=== PATIENT | female | born 1965 | race African-American/Black ===

== ENCOUNTER 2024-09-26 09:32 | Outpatient (AMB) | payer BC, SELFPAY ==
[2024-09-26 10:17] VITALS: BP 124/64; PULSE 111; O2SAT 97; BMI 19.1
--- NOTE | 2024-09-26 10:17 | A.OFFVIS_ITS ---
Vital Signs 09/26/24 10:17 Height 5 ft 3 in Weight 107 lb 9.116 oz BMI 19.1 BP 124/64 Blood Pressure Location Lt brachial Position Sitting Pulse 111 H Pulse Source Pulse Oximeter Pulse Oximetry (%) 97 Oxygen Delivery Method Room Air Intake Visit Reasons: Auto Immune Intake Note: Patient presents for follow up on autoimmune. Patient has difficulties of daily living, everything is more of an effort, which started in April. Stiffness in hands since May. Allergies acetaminophen [From Tylenol] Allergy (Mild, Verified 09/26/24 10:21) urticaria, skin rashes erythromycin base Allergy (Mild, Verified 09/26/24 10:21) Stomach Upset Penicillins Allergy (Mild, Verified 09/26/24 10:21) Hives HPI Comments Details: In Jul 2023 she took fosamax first time then had a hard time swallowing requiring heimlich maneuver at work. She had PTSD and did not eat well for 8 months. Lost 20lbs. She had bilateral knee R>L in April. She had x-rays revealing joint fluid per patient. PCP have her 6 day treatment of prednisone, which relieved hand pain. SHe saw ortho [facility] who drained right knee and dx her with chondromalacia with recommendations to do PT. She recieved right knee cortisone injection with benefit. She felt worse after PT then before starting. She continues to do PT excercise. Hand pain started in May. MS 1-3 hours. PIPs are swollen and stiffness. Unable to close hands. She has intermittent shoulder pain. Denies hip and lower back pain. Denies GCA symptoms. [facility] Medical History (Updated 09/26/24 @ 12:51 by Parrish Castelan MD) Abscess of right breast Bilateral hand pain Surgical History (Updated 09/26/24 @ 10:32 by Angela Chaudhary CMA) History of carpal tunnel surgery of left wrist H/O dilation and curettage Family History (Updated 09/26/24 @ 10:36 by Angela Chaudhary CMA) Father Gouty arthritis Mother History of thyroid surgery Diabetes Hypertension Brother Scleroderma Gout Social History (Updated 09/26/24 @ 10:37 by Angela Chaudhary CMA) Household Members: Family Alcohol intake: current Alcohol intake frequency: holidays/special occasions only Alcohol type: hard liquor Comment: mixed drink Patient Tobacco Use Status: Never used Tobacco Review of Systems Const All systems reviewed & are unremarkable except as noted in HPI and below Physical Exam Vital Signs: Last Vital Signs Pulse 111 H 09/26/24 10:17 BP 124/64 09/26/24 10:17 Pulse Ox 97 09/26/24 10:17 Oxygen Delivery Method Room Air 09/26/24 10:17 BMI result Body Mass Index 19.1 Const Other: General: Comfortable CVS: RRR Respiratory: clear to auscultation bilaterally. Good respiratory effort Skin: No lesions seen MSK: Chronic synovial thickening bilateral 1st to 3rd MCPs, tender right PIPs with synovitis present 3rd PIP, tender left 2nd to 5th PIPs, synovitis of bilateral wrists present. Shoulder abduction 170 degrees bilateral with good internal external rotation. Synovitis of bilateral knees with tenderness present. Tender bilateral knees on palpation. Synovitis of bilateral ankles and left MTPs present. No tenderness of MTPs. Assessment & Plan Assessment & Plan (1) Chronic inflammatory arthritis: Comment: Exam is consistent with inflammatory arthritis. She has a prior history of PMR. PMR remains in remission. She is very anxious with new diagnosis. I discussed in detail management plan with patient but she is very overwhelmed. I will obtain labs and baseline x-rays this visit and have her return for follow-up with a close visit in month. She agreed to use prednisone short term. Code(s): M19.90 - Unspecified osteoarthritis, unspecified site Category: Medical Plan: Prednisone course prescribed Labs ordered X-rays bilateral hands and feet ordered Requesting x-ray reports of bilateral knees ordered by PCP and nails Return to clinic in a month (2) Polymyalgia rheumatica: Comment: In remission Code(s): M35.3 - Polymyalgia rheumatica Category: Medical Plan: Monitor clinically (3) Osteoporosis: Comment: Based on bone density 08/14/2023. She did not tolerate Fosamax and a choking episode requiring heimlich maneuver with subsequent PTSD. We will address treatment at a future visit. Reclast as indicated Code(s): M81.0 - Age-related osteoporosis without current pathological fracture Category: Medical Plan: We will readdress at a future visit Orders: Orders Cyclic Citrullinated Peptide Today M19.90 - Unspecified osteoarthritis, unspecified site Rheumatoid Factor Today M19.90 - Unspecified osteoarthritis, unspecified site C Reactive Protein Today M1 - Unspecified osteoarthritis, unspecified site XR foot LT 2V Today M1 - Unspecified osteoarthritis, unspecified site Hepatitis B,C Profile Today M1 - Unspecified osteoarthritis, unspecified site T Spot TB Today M1 - Unspecified osteoarthritis, unspecified site Erythrocyte Sedimentation Rate Today M1 - Unspecified osteoarthritis, unspecified site Alanine Aminotransferase Today Z79.60 - intermodal owner operator truck driver (current) use of unspecified immunomodulators and immunosuppressants Aspartate Amino Transferase Today Z79.60 - intermodal owner operator truck driver (current) use of unspecified immunomodulators and immunosuppressants Complete Blood Count Auto Diff Today Z79.60 - longterm (current) use of unspecified immunomodulators and immunosuppressants Creatinine Today Z79.60 - longterm (current) use of unspecified immunomodulators and immunosuppressants XR hand LT min 3V Today M1 - Unspecified osteoarthritis, unspecified site XR hand RT min 3V Today M1 - Unspecified osteoarthritis, unspecified site XR foot RT 2V Today M1 - Unspecified osteoarthritis, unspecified site Medications: New prednisone Take 4 tablets daily for 5 days, 3 tablets daily for 5 days, 2 tablets daily for 5 days, 1 tablet daily for 5 days, then stop. Take prednisone with food. 5 mg PO DIRECTED 50 tabs 0RF Coding Level of Care Code Est Pt Level 4 (71927) Complex EM visit Add On G2211 Diagnoses Chronic inflammatory arthritis M1 Polymyalgia rheumatica M35.3 Osteoporosis M81.0
== END 2024-09-26 11:19 | disposition home or self-care (01) ==
PROVIDERS: PCP Nurse Practitioner Family; Visit Provider Internal Medicine Rheumatology
DX: M19.90 Unspecified osteoarthritis, unspecified site (principal); M35.3 Polymyalgia rheumatica; M81.0 Age-related osteoporosis without current pathological fracture
CPT/HCPCS: 99214

== ENCOUNTER 2024-09-27 13:59 | Outpatient (REF) | payer BC, SELFPAY ==
--- NOTE | ~2024-09-27 | XR_ITS ---
EXAMINATION: XR HAND 3 OR MORE VIEWS LEFT HISTORY: M19.90 - Unspecified osteoarthritis, unspecified site COMPARISON: There are no prior studies available for comparison. FINDINGS: Three views of the left hand are submitted. There are erosions involving the scaphoid and likely the distal radius and lunate. There is no fracture or dislocation. There is moderate osteoarthritis of the 1st carpometacarpal joint with joint space narrowing. The remaining joint spaces are preserved. The soft tissues are unremarkable. XR/XR hand LT min 3V IMPRESSION: Moderate osteoarthritis of the 1st carpometacarpal joint. Erosions involving the carpus and distal radius. Electronically signed by: Angel Dover MD 10/02/2024 10:42 AM [facility]
--- NOTE | ~2024-09-27 | XR_ITS ---
EXAMINATION: XR FOOT 3 OR MORE VIEWS LEFT HISTORY: M19.90 - Unspecified osteoarthritis, unspecified site COMPARISON: There are no prior studies available for comparison. FINDINGS: Three views of the left foot are submitted. Osseous mineralization is normal. There is no fracture or dislocation. The joint spaces are preserved. The soft tissues are unremarkable. XR/XR foot LT min 3V IMPRESSION: Unremarkable examination of the left foot. Electronically signed by: Angel Dover MD 10/02/2024 10:44 AM [facility]
--- NOTE | ~2024-09-27 | XR_ITS ---
EXAMINATION: XR FOOT 3 OR MORE VIEWS RIGHT HISTORY: M19.90 - Unspecified osteoarthritis, unspecified site COMPARISON: There are no prior studies available for comparison. FINDINGS: Three views of the right foot are submitted. Osseous mineralization is normal. There is no fracture or dislocation. The joint spaces are preserved. The soft tissues are unremarkable. XR/XR foot RT min 3V IMPRESSION: Unremarkable examination of the right foot. Electronically signed by: Angel Dover MD 10/02/2024 10:45 AM [facility]
--- NOTE | ~2024-09-27 | XR_ITS ---
EXAMINATION: XR HAND 3 OR MORE VIEWS RIGHT HISTORY: M19.90 - Unspecified osteoarthritis, unspecified site COMPARISON: There are no prior studies available for comparison. FINDINGS: Three views of the right hand are submitted. Osseous mineralization is normal. There is no fracture or dislocation. The joint spaces are preserved. The soft tissues are unremarkable. XR/XR hand RT min 3V IMPRESSION: No joint space narrowing is identified. Electronically signed by: Angel Dover MD 10/02/2024 10:44 AM [facility]
[2024-09-27 16:13] LABS: MANUAL DIFF FLAG NO
[2024-09-27 16:23] LABS: Basophils Absolute Auto 0.1 X10*3/uL (0.0-0.2); Basophils Percent Auto 0.7 % (0-2); Eosinophils Absolute Auto 0.1 X10*3/uL (0.0-0.4); Eosinophils Percent Auto 1.1 % (0-4); Hematocrit 31.1 % (37.0-47.0); Hemoglobin 9.5 g/dl (12.0-16.0); Imm Gran Abs Auto 0.03 X10*3/uL (0.00-0.03); Imm Gran Pct Auto 0.4 % (0.0-0.4); Lymphocytes Absolute Auto 2.7 X10*3/uL (1.2-4.9); Mean Corpuscular HGB Conc 30.5 g/dl (31.0-35.0); Mean Corpuscular Hemoglobin 23.7 pg (27.0-33.0); Mean Corpuscular Volume 77.6 fL (80.0-98.0); Mean Platelet Volume 10.7 fL (9.4-12.3); Monocytes Absolute Auto 0.9 X10*3/uL (0.1-1.2); Monocytes Percent Auto 10.6 % (2-11); Neutrophils Absolute Auto 4.5 x10*3/uL (2.0-8.3); Neutrophils Percent Auto 54.2 % (45-73); Platelet Count 654 X10*3/uL (160-400); Red Blood Count 4.01 X10*6/uL (4.20-5.50); Red Cell Distribution Width 16.6 % (11.0-16.0); White Blood Count 8.2 X10*3/uL (4.8-10.8)
[2024-09-27 16:32] LABS: Rheumatoid Factor 15.4 IU/mL (<15.0)
[2024-09-27 16:35] LABS: Alanine Aminotransferase < 6 U/L (0-31); Aspartate Amino Transferase 20 U/L (5-31); C Reactive Protein 16.63 mg/dL (< or = 0.50); Estimated Glomerular Filt Rate > 60
[2024-09-27 17:16] LABS: Erythrocyte Sedimentation Rate 86 MM/HR (0-20)
[2024-09-28 04:04] LABS: HBS Num1 277.41 mIU/mL (0-7.99); HBc Num1 0.44 S/CO (0.00-0.79); HBsAGNum1 0.36 S/CO (0.00-0.99); Hepatitis B Core Antibody Nonreactive (Nonreactive); Hepatitis B Surface Antigen Negative (Negative); ~HepC Num1 0.19 S/CO (0.00-0.79); ~Hepatitis B Surface Antibody REACTIVE (Nonreactive); ~Hepatitis C Antibody Nonreactive (Nonreactive)
[2024-10-03 19:53] LABS: Cyclic Citrullinated Peptide <16 UNITS
== END 2024-09-27 14:00 | disposition home or self-care (01) ==
LOC: HO.HMGCX 13:59
PROVIDERS: PCP Nurse Practitioner Family; Visit Provider Internal Medicine Rheumatology
DX: M19.90 Unspecified osteoarthritis, unspecified site (principal); Z79.60 Long term (current) use of unspecified immunomodulators and immunosuppressants
CPT/HCPCS: 36415; 73130; 73630; 82565; 84450; 84460; 85025; 85652; 86140; 86200; 86431; 86704; 86706; 86803; 87340

== ENCOUNTER → 2024-09-27 14:08 | Outpatient (BNV) | payer BC, SELFPAY | PROVIDERS: PCP Nurse Practitioner Family; Visit Provider Radiology Diagnostic Radiology | DX: M18.9 Osteoarthritis of first carpometacarpal joint, unspecified (principal); M19.90 Unspecified osteoarthritis, unspecified site | CPT/HCPCS: 73130; 73630 ==

== ENCOUNTER 2024-11-05 10:07 | Outpatient (AMB) | payer BC, SELFPAY ==
[2024-11-05 10:09] VITALS: BP 122/74; PULSE 134; O2SAT 100; BMI 19.7
--- NOTE | 2024-11-05 10:09 | MHC.OFFVIS ---
Vital Signs 11/05/24 10:09 Height 5 ft 3 in Weight 111 lb 8 oz BMI 19.7 BP 122/74 Blood Pressure Location Lt brachial Position Sitting Pulse 134 H Pulse Source Pulse Oximeter Pulse Oximetry (%) 100 Oxygen Delivery Method Room Air Intake Visit Reasons: Follow Up 1mo Intake Note: Patient presents for follow up Allergies acetaminophen [From Tylenol] Allergy (Mild, Verified 11/05/24 10:12) urticaria, skin rashes erythromycin base Allergy (Mild, Verified 11/05/24 10:12) Stomach Upset Penicillins Allergy (Mild, Verified 11/05/24 10:12) Hives HPI HPI Follow Up 1mo: Details: Pain has reduced. Morning stiffness none. [facility] Medical History Abscess of right breast Bilateral hand pain Surgical History History of carpal tunnel surgery of left wrist H/O dilation and curettage Family History Father Gouty arthritis Mother History of thyroid surgery Diabetes Hypertension Brother Scleroderma Gout Social History Household Members: Family Alcohol intake: current Alcohol intake frequency: holidays/special occasions only Alcohol type: hard liquor Comment: mixed drink Patient Tobacco Use Status: Never used Tobacco Physical Exam Vital Signs: Last Vital Signs Pulse 134 H 11/05/24 10:09 BP 122/74 11/05/24 10:09 Pulse Ox 100 11/05/24 10:09 Oxygen Delivery Method Room Air 11/05/24 10:09 BMI result Body Mass Index 19.7 Const Other: General: Comfortable CVS: RRR Respiratory: clear to auscultation bilaterally. Good respiratory effort Skin: No lesions seen MSK: She has synovitis bilateral wrists, chronic synovial thickening left 2nd and 3rd MCP, synovitis of left 3rd PIP, right 4th and 3rd PIP, bilateral knees, bilateral ankles and MTP. She is unable to make full fist with her hands. Good range of motion of upper extremities. Good range of motion of lower Assessment & Plan Assessment & Plan (1) Rheumatoid arthritis: Comment: Seropositive with positive rheumatoid factor. She has had relief in reducing her pain and stiffness with a course of prednisone. She continues to have synovitis affecting multiple joints. We discussed next steps in treatment. Patient is very apprehensive and afraid. She has anxiety with new diagnosis. I discussed the importance of treatment to continue to control her synovitis with goal of remission. I also discussed the importance of maintenance treatment to prevent progression of disease and irreversible joint damage leading to disability. Patient understands. We discussed side effects, drug monitoring and benefits on methotrexate. Code(s): M06.9 - Rheumatoid arthritis, unspecified Category: Medical Plan: Information given to patient on methotrexate and rheumatoid arthritis I have asked her to contact my office if her pain returns and worsens or if her joint swelling progresses Return to clinic in 1 month (2) [facility] [place] [facility] drug therapy: Code(s): Z79.899 - Other [place] [facility] [place] (current[facility] drug therapy Category: Medical Plan: See above Coding Level of Care Code Est Pt Level 4 (84519) Complex EM visit Add On G2211 Diagnoses Rheumatoid arthritis M06.9 Other [place] [facility]current[facility] drug therapy Z79.899
--- OUTSIDE RECORDS SUMMARY | 2024-11-05 11:14 | XMS_ITS | Clinical Summary ---
Author Organization [facility] Address [address] [place] [address] Care Team Providers Care Hydrogeologist Name Role Phone Cyn Taylor DO Primary Care Provider Allergies Active Allergy Reactions Criticality Noted Date Comments Acetaminophen Other 06/22/2000 Erythromycin Diarrhea/GI Upset 08/24/2007 Penicillin G Potassium Urticarial Rash Medium 03/16/20 07 hives Omeprazole Diarrhea/GI Upset 07/11/2007 Medications MULTIVITAMINS OR TABS 1 TABLET DAILY Active Tretinoin 0.025 % Cream None Entered Active Triamcinolone Acetonide, [id number], (TRIAMCINOLONE ACETONIDE, TOP,) 0.1 % Cream None Entered Active Active Problems Problem Noted Date Diagnosed Date Cervical cancer screening 12/21/2017 Overview (12/22/2017): Negative/normal pap smear hx. 12/18/17: ASCUS pap/Neg HPV. Plan: Repeat pap smear in 3 years. Allergic rhinitis 12/01/2003 Overview (06/27/2016): 12/01/2003 Harish KLEIN MD , Immunizations Name Administration Dates Next Due COVID-19, mRNA (Pfizer Pre F all 2022) Monovalent, 30 mcg/0.3 ml 05/04/2021,04/12/2021 Hep B (adult) 01/31/2008,12/28/2007 Influenza,seasonal,trivalent ,preservative (FLUZONE MDV) 08/25/2023,08/08/2022,08/06/2021 PPD/TST (Tuberculin Skin Test) 12/25/2007 Td (adult), adsorbed 11/24/2003 Family History Medical History Relation Name Comments Cancer (?Type) Brother 1 prostate Other Brother 2 scleroderma- d 2006 Diabetes Father Heart Disorder Father Other Father kidney failure Relation Name Status Comments Brother 1 Brother 2 Father Social History Tobacco Use Types Packs/Day Years Used Date Smoking Tobacco: Never Smokeless Tobacco: Never Alcohol Use Standard Drinks/Week Comments Yes 0 (1 standard drink = 0.6 oz pur e alcohol) rarely Intimate Partner Violence Answer Date R ecorded Fear of Current or Ex-Partner Not on file Emotionally Abused Not on file 05/15/2023 Physically Abused Not on file 05/15/2023 Sexually Abused Not on file 05/15/2023 Feel Safe at Home Not on file 05/15/2023 Comments No Sex and Gender Information Value Date Recorded Sex Assigned at Not on file Legal Sex Female 3:21 AM EDT Gender Identity Not on file Sexual Orientation Not on file Last Filed Vital Signs Vital Sign Reading Time Taken Comments Blood Pressure 139/82 12/18/2017 11:08 AM EDT Pulse 88 09/13/2007 11:05 AM EST Temperature 36.8 ??C (98.3 ??F) 08/24/2007 10:[address] Respiratory Rate - - Oxygen Saturation - - Inhaled Oxygen Concentration - - Weight 57.2 kg (126 lb) 12/18/2017 11:08 AM EDT Height 160 cm (5' 3 ) 12/18/2017 11:08 AM EDT Body Mass Index 22.32 12/18/2017 11:08 AM EDT Plan of Treatment Health Maintenance Due Date Last Done Comments DTaP/Tdap/Td (1 - Tdap) 11/25/2003 11/24/2003 Hep B (3 of 3 - 19+ 3-dose series) 06/28/2008 01/31/2008, 12/28/2007 Pneumococcal 50+ years (1 of 1 - PCV) 2016 Zoster (Shingrix) (1 of 2) 2016 Mammogram/Breast Imaging 02/23/2018 017, 02/06/2017, 02/01/2016, Additional history exists Pap Smear 12/18/2020 12/18/2017, 12/24, 12/07/2011, Additional history exists COVID-19 Vaccine ( season) 2024 05/04/2021, 04/12/2021 Influenza (#1) 2024 08/25/2023, 07/26, 08/06/2021 Hepatitis C Screening Completed 04/17/2001 HPV Vaccine Aged Out No longer eligi ble based on patient's age to complete this topic Hep A Aged Out No longer eligi ble based on patient's age to complete this topic Hib Aged Out No longer eligi ble based on patient's age to complete this topic Meningococcal ACWY Aged Out No longer eligible based on patient's age to complete this topic Procedures * Due to [place] [employer] [facility] law, this organization might not be sharing negative HIV tests. Procedure Name Priority Date/Time Associated Diagnosis Comments THINPREP TIS PAP AND HPV RNA, HR E6/E7, TMA Routine 12/18/2017 3:07 PM EDT Screening for malignant neoplasm of cervix MAMMOGRAM BILAT DIAG Routine 02/23/2017 2:13 PM EDT HEP C ANTIBODY (EIA-2) Routine 04/17/2001 7:04 AM EDT from Last 3 Months or Most Recently Relevant to Health Maintenance Results * Due to [place] [employer] [facility] law, this organization might not be sharing negative HIV tests. * (ABNORMAL) THINPREP TIS PAP AND HPV RNA, HR E6/E7, TMA (12/18/2017 3:07 PM EDT) Clinical information None given [facility] Date last menstrual period NONE GIVEN [facility] Date of previous PAP smear 01/08/15 NEG [facility] Date of previous biopsy NONE GIVEN [facility] Specimen source (Cvx/Vag) Cervix, Endocervix [facility] Statement of Adequacy (Cvx/Vag) Satisfactory for evaluation. Endocervical/tr ansformation zone component present. [facility] General categories (Cvx/Vag) EPITHELIAL CELL ABNORMALITY(A) [facility] Cytology, Pap Smear Atypical Squamous Cells of Undetermined Significance (ASC-US)(A) [facility] Microorganism identified (Cvx/Vag) Shift in vaginal uday suggestive of bacterial vaginosis. [employer] Cytology study comment (Cvx/Vag) This Pap test has been evaluated with computer assisted technology. [facility] Marketing Director Assisted Living (Cvx/Vag) [place], DIANN(ASCP) CT screening location: [address] [address] [facility] Pathologist (Cvx/Vag) Lori Spaulding M.D., Board Certified in Anatomic and Clinical Pathology (electronic signature) Consulting Pathologist [facility] [address] [place], [place] [id number] [employer] [facility] COMMENT SEE NOTE [facility] Comment: EXPLANATORY NOTE: The Pap is a screening test for cervical cancer. It is not a diagnostic test and is subject to false negative and false positive results. It is most reliable when a satisfactory sample, regularly obtained, is submitted with relevant clinical findings and history, and when the Pap result is evaluated along with historic and current clinical information. HPV MRNA E6/E7 Not Detected Not Detected [facility] Comment: This test was performed using the APTIMA HPV Assay ([employer] This assay detects E6/E7 viral messenger RNA (mRNA) from 14 high-risk HPV types (16,18,31,33,35,39,45,51,52,56,58,59,66,68). 12/18/2017 3:07 PM EDT 12/18/2017 10:22 PM EDT Narrative Resulting Agency Comment [id number] Jessica Keller MD PATHOLOGY-INTERFACED Final Resul t [facility] [address] [place] [address] * MAMMOGRAM BILAT DIAG (02/23/2017 2:13 PM EDT) RADIOLOGY REPORT DEPARTMENT OF RADIOLOGY ? ------ ?? Patient: INGA RAMIREZ Unit #: [id number] ?? Ordering MD: DINA OCHOA MD : 1965 ?? Procedure: Mammogram Bilat Diag Age: 51 ?? Location: W.MAMMO Exam Date: 02/23/17 ?? Status: REG CLI Room/Bed: ? Primary MD: THANH NEGRON MD Patient ? Order: MAMBILAT ?? Additional Copy: ??DINA OCHOA MD ?? THANH NEGRON MD ? #[id number] - MAMBILAT ?? #[id number] ??- USBRLIMIT ?? BILATERAL DIGITAL DIAGNOSTIC MAMMOGRAM WITH CAD AND TARGETED ?? BILATERAL ULTRASOUND: 02/23/2017 ?? CLINICAL: Bilat Breast Densities. ? Current study was also evaluated with a Computer Aided Detection ?? (CAD) system. ?? Patient returns following the recent screening study dated 06 February ?2017. There was a recommendation made for 3-D imaging however ?? the patient opted for 2-D imaging at this site. ?? Comparison is made to exams dated: ??02/06/2017 mammogram, 02/01/2016 ?mammogram, 01/08/2015 mammogram, 03/21/2012 mammogram, 03/15/2011 ?? mammogram, and 12/09/2009 mammogram - [facility] [place]. ? The tissue of both breasts is extremely dense, which may obscure ?? small masses. ?? Additional views of the left breast failed to identify any ?? developing mass or architectural distortion. ?? On the right, no multiple masses are confirmed on today's ?? views. ?? Because of the background density of both breasts targeted ?? ultrasound was performed. On the left, there is a circumscribed ?? anechoic and avascular mass at the 12:00 position 3 cm from the ?? nipple. This may represent a cyst or possibly an intramammary ?? node. It is felt to correspond with a stable circumscribed oval ?? asymmetry in the upper breast, mid depth, on the patient's ?? mammogram. No solid or suspicious masses are seen. ?? On the right, ??there is a simple cyst at the 1:00 position and 2 ?? cm from the nipple. There are no solid masses. ?? IMPRESSION: NEGATIVE, TARGETED ULTRASOUND NEGATIVE ?? There is no mammographic or targeted sonographic evidence of ?? malignancy. A 1 year screening mammogram, preferably 3-D, is ?? recommended. ??Results and recommendation were discussed directly ?? with the patient at the time of her visit. This exam was ?? interpreted at [facility]. ?? POI: [facility]. ? Electronically signed by: Velvet Khan M.D. ? issac/:02/23/2017 15:13:30 ? letter sent: A-2 Normal Benign ? Mammogram BI-RADS: 1 Negative ??Ultrasound BI-RADS: 1 Negative ? SAM[facility] ? [facility] RAD Anatomical Region Laterality Modality Other 02/23/2017 2:13 PM EDT Narrative 02/23/2017 4:38 PM EDT Reason for Study/History: Bilat Breast Densities. TEST(S) PROCESSED BY ALBERTOILENE LOWRY us Dina Ochoa MD [facility] Final R esult * HEP C ANTIBODY (EIA-2) (04/17/2001 7:04 AM EDT) HEPATITIS C AB NEGATIVE [facility] (CLIA# [id number]) 04/17/2001 7:04 AM EDT 04/20/2001 1:41 PM EDT Narrative [facility] (CLIA# [id number]) - 04/17/2001 7:04 AM EDT Send Copy(s) to: [facility] us Cris Taylor MS RN C ANP LABORATORY Final R esult [facility] (CLIA# [id number]) [address] [place] [address] from Last 3 Months or Most Recently Relevant to Health Maintenance Insurance [facility] FEE FOR SERVICE PPO Care Teams Hydrogeologist Relationship Specialty Start Date End Date Cyn Taylor DO [address] [place] [address] PCP - General Internal Medicine 8/6/15
--- OUTSIDE RECORDS SUMMARY | 2024-11-05 11:14 | XMS_ITS | Encounter Summary ---
Author Organization [facility] Address [address] [place] [address] Care Team Providers Care Assistant Store Leader Name Role Phone Cyn Taylor DO Primary Care Provider [phone] Encounter Details Date Type Department Care Team (Late st Contact Info) Description 12/18/2017 Orders Only [facility] MANA[facility] STORE [address] [place] [address] Jessica Keller MD [address] [place] [address] Social History Tobacco Use Types Packs/Day Years Used Date Smoking Tobacco: Never Smokeless Tobacco: Never Alcohol Use Standard Drinks/Week Comments Yes 0 (1 standard drink = 0.6 oz pur e alcohol) rarely Comments No Sex and Gender Information Value Date Recorded Sex Assigned at Not on file Legal Sex Female 3:21 AM EDT Gender Identity Not on file Sexual Orientation Not on file documented as of this encounter Progress Notes * Dina Lujan - 12/22/2017 11:50 AM EDT Results letter with recommendation sent to pt. On problem list. * Jessica Keller MD - 12/21/2017 5:01 PM EDT Per ASCCP guidelines, repeat PAP in 3 years * Dina Lujan - 12/21/2017 3:31 PM EDT To for pap smear f/u plan. documented in this encounter Plan of Treatment Not on file documented as of this encounter Procedures * Due to [facility] law, this organization might not be sharing negative HIV tests. Procedure Name Priority Date/Time Associated Diagnosis Comments THINPREP TIS PAP AND HPV RNA, HR E6/E7, TMA Routine 12/18/2017 3:07 PM EDT Screening for malignant neoplasm of cervix documented in this encounter Results * Due to [place] [employer] law, this organization might not be sharing [...] in vaginal uday suggestive of bacterial vaginosis. [facility] Cytology study comment (Cvx/Vag) This Pap test has been evaluated with computer assisted technology. [facility] Rocket Scientist (Cvx/Vag) HJP, CT(ASCP) CT screening location: [place] [address] [facility] Pathologist (Cvx/Vag) Lori Spaulding M.D., Board Certified in Anatomic and Clinical Pathology (electronic signature) Consulting Pathologist [facility] Pathology [address] [place] [address] [facility] COMMENT SEE NOTE [facility] Comment: EXPLANATORY NOTE: The Pap is [...] HPV MRNA E6/E7 Not Detected Not Detected [facility] Comment: This test was performed using the APTIMA HPV Assay ([employer] This assay detects E6/E7 viral messenger RNA (mRNA) from 14 high-risk HPV types (16,18,31,33,35,39,45,51,52,56,58,59,66,68). 12/18/2017 3:07 PM EDT 12/18/2017 10:22 PM EDT Narrative Resulting Agency Comment [id number] Jessica Keller MD PATHOLOGY-INTERFACED Final Resul t [facility] [address] [place] [address] documented in this encounter Visit Diagnoses Diagnosis Screening for malignant neoplasm of cervix Screening for malignant neoplasm of the cervix documented in this encounter Care Teams Assistant Store Leader Relationship Specialty Start Date End Date Cyn Taylor DO [address] [place] [address] PCP - General Internal Medicine 04/30/15 documented as of this encounter
--- OUTSIDE RECORDS SUMMARY | 2024-11-05 11:14 | XMS_ITS | Encounter Summary ---
Author Organization [facility] Address [address] [place] [address] Care Team Providers Care Tank Cleaning Supervisor Name Role Phone Trini Mehta Primary Care Provider [phone] Encounter Details Date Type Department Care Team (Latest Contact Info) Description 10/24/2024 10:40 AM EST - 10/24/2024 11:59 PM EST Hospital Encounter [facility] Ultrasound Department [address] [place] [address] Lump in armpit, left Discharge Disposition: Home or Self Care () Social History Tobacco Use Types Packs/Day Years Used Date Smoking Tobacco: Never Comments:: Comments No Sex and Gender Information Value Date Recorded Sex Assigned at Female 09/11/2024 9:52 AM EST Legal Sex Female 12:05 AM EDT Gender Identity Not on file Sexual Orientation Not on file documented as of this encounter Plan of Treatment Not on file documented as of this encounter Procedures * Due to [place] [employer] law, this organization might not be sharing negative HIV tests. Procedure Name Priority Date/Time Associated Diagnosis Comments US LEFT BREAST LIMITED ADDITIONAL VIEWS Routine 10/24/2024 11:43 AM EST Lump in armpit, left documented in this encounter Results * Due to [place] law, this organization might not be sharing negative HIV tests. * US Left Breast Limited Additional Views (10/24/2024 11:43 AM EST) Anatomical Region Laterality Modality Breast Left Ultrasound Narrative 10/24/2024 12:58 PM EST Inga Gregory Exam Date: 10/24/[address] [address] INDICATIONS Enlarged axillary lymph nodes on screening mammogram. TECHNIQUE US Left Breast Limited Additional Views COMPARISON 09/13/2024 FINDINGS Ultrasound of the left axilla was performed. ??Comparison images of the right axilla were also obtained. ?? There are multiple enlarged lymph nodes in both axillae, with diffuse cortical thickening of up to 6 mm. ??No hilar effacement is seen. ?? The patient gives a history of polymyalgia rheumatica. ?? IMPRESSION Bilaterally symmetric axillary lymphadenopathy which is consistent with the patient's history of polymyalgia rheumatica. BI-RADS?? ATLAS category (left): 2 - Benign MANAGEMENT Routine Screening Mammogram in 1 Year is recommended for left. ??The patient was entered into a reminder system with a target date for their next breast imaging exam. If this radiology report contains a blank impression section, it is an incomplete radiology report. ??Please contact the interpreting radiologist or applicable radiology division as soon as possible to obtain the completed interpretation. Rita Agosto MD Trini Mehta IMG BI PROCEDURES Final Result documented in this encounter Visit Diagnoses Diagnosis Lump in armpit, left documented in this encounter Care Teams Tank Cleaning Supervisor Relationship Specialty Start Date End Date Trini Mehta [address] [address] PCP - General 08/08/23 documented as of this encounter
--- OUTSIDE RECORDS SUMMARY | 2024-11-05 11:14 | XMS_ITS | Referral Summary ---
Author Organization [facility] Address [address] [place] [address] Care Team Providers Care Gas Line Installer Supervisor Name Role Phone Trini Mehta Primary Care Provider [phone] Encounters Date Type Department Care Team Description 10/24/2024 10:40 AM EST - 10/24/2024 11:59 PM [facility] Hospital Encounter [facility] Ultrasound Department [address] [place] [address] Lump in armpit, left Discharge Disposition: Home or Self Care () 09/13/2024 12:35 PM EST - 09/13/2024 11:59 PM [facility] Hospital Encounter [facility] Mammography Department [address] [place] [address] Screening mammogram for breast cancer Discharge Disposition: Home or Self Care () from Last 3 Months Active Problems Problem Noted Date Diagnosed Date Eczema 05/01/2014 Allergic rhinitis 10/03/2012 Immunizations Name Administration Dates Next Due Tetanus Toxoid, Reduced Diph theria Toxoid, and Acellular Pertussis Vaccine, Adsorbed 05/18/2009 Social History Tobacco Use Types Packs/Day Years Used Date Smoking Tobacco: Never Comments:: Comments No Sex and Gender Information Value Date Recorded Sex Assigned at Female 09/11/2024 9:52 AM EST Legal Sex Female 12:05 AM EDT Gender Identity Not on file Sexual Orientation Not on file Last Filed Vital Signs Vital Sign Reading Time Taken Comments Blood Pressure 121/84 06/03/2015 8:03 AM EDT Pulse 100 06/03/2015 8:03 AM EDT Temperature 36.6 ??C (97.8 ??F) 05/30/2014 8:41 AM ED T Respiratory Rate - - Oxygen Saturation 98% 06/03/2015 8:03 AM EDT Inhaled Oxygen Concentration - - Weight 54 kg (119 lb) 09/13/2024 12:37 PM EST Height 158.8 cm (5' 2.5 ) 09/13/2024 12:37 PM ES T Body Mass Index 21.42 09/13/2024 12:37 PM EST Plan of Treatment Not on file Procedures * Due to [place] [employer] law, this organization might not be sharing negative HIV tests. Procedure Name Priority Date/Time Associated Diagnosis Comments US LEFT BREAST LIMITED ADDITIONAL VIEWS Routine 10/24/2024 11:43 AM EST Lump in armpit, left SAMAN BILATERAL SCREENING DIGITAL MAMMOGRAM WITH RONNIE Routine 09/13/2024 12:55 PM EST Screening mammogram for breast cancer from Last 3 Months Results * Due to [place] [employer] law, this organization might not be sharing negative HIV tests. * US Left Breast Limited Additional Views (10/24/2024 11:43 AM EST) Anatomical Region Laterality Modality Breast Left Ultrasound Narrative 10/24/2024 12:58 PM EST Inga Gregory Exam Date: 10/24/[address] [address] INDICATIONS Enlarged axillary lymph nodes on screening [...] completed interpretation. Rita Agosto MD Trini Mehta [facility] BI PROCEDURES Final Result * (ABNORMAL) SAMAN Bilateral Screening Digital Mammogram With Ronnie (09/13/2024 12:55 PM EST) Anatomical Region Laterality Modality Breast Bilateral Mammography Narrative 09/27/2024 7:59 AM EST Exam Date: 09/13/[address] [address] EXAMINATION SAMAN Bilateral Screening Digital Mammogram With Ronnie. INDICATION Inga Gregory is a 59 y.o. female and is seen for: SAMAN Bilateral Screening Digital Mammogram With Ronnie. CC and MLO views were obtained. FDA approved Transpara?? AI (artificial intelligence) software and R2 CAD were used as a concurrent reading aid in the interpretation of this study. COMPARISON Relative prior breast images Bilateral Breast Findings: The breasts are extremely dense, which lowers the sensitivity of mammography. No significant masses, calcifications or other abnormalities are seen. ??Possibly prominent partially imaged left axillary lymph nodes IMPRESSION BI-RADS?? ATLAS category (left): 0 - Incomplete: Needs Additional Imaging Evaluation BI-RADS?? ATLAS category (right): 1 - Negative MANAGEMENT Ultrasound is recommended for left Additional Projections is recommended for left Routine Screening Mammogram in 1 Year is recommended for right. ??The patient was entered into a reminder system with a subsequent mammography target date. The patient? s lifetime risk for breast cancer was calculated using Tyrer-Cuzick: 14.38%. Women with lifetime risk <20% and dense breast tissue may benefit from supplemental screening with breast MRI or automated breast ultrasound (ABUS) depending on risk factors. https://acsearch.acr.org/docs/7835235/Narrative/ Breast MRI is available at many [facility] MRI locations. To schedule, enter an MRI order into [facility] Epic (MRI BREAST BILAT SCREENING W WO CONTRAST), call [phone] or [phone], or fax [phone]. ABUS is available at two [facility] sites. To schedule, enter an ABUS order into [facility] (ABUS), contact [place] Central Scheduling (call [phone] or fax order [phone]), or contact [facility] Central Scheduling (call [phone] or fax order [phone]). If this radiology report contains a blank impression section, it is an incomplete radiology report. ??Please contact the interpreting radiologist or applicable radiology division as soon as possible to obtain the completed interpretation. Deepika Barillas MD Trini Mehta IMG BI PROCEDURES Final Result from Last 3 Months Insurance [employer] OUT OF STATE PPO Care Teams Gas Line Installer Supervisor Relationship Specialty Start Date End Date rTini Mehta [facility] & [address] [place] [address] PCP - General 08/08/23
--- OUTSIDE RECORDS SUMMARY | 2024-11-05 11:14 | XMS_ITS | Clinical Summary ---
Author Organization [facility] Address [address] [place] [address] Care Team Providers Care Placement Director Name Role Phone Triin Mehta Primary Care Provider [phone] Active Problems Problem Noted Date Diagnosed Date Eczema 05/01/2014 Allergic rhinitis 10/03/2012 Encounters Date Type Department Care Team Description 10/24/2024 10:40 AM EST - 10/24/2024 11:59 PM EST Hospital Encounter [facility] Ultrasound Department [address] [place] [address] Lump in armpit, left Discharge Disposition: Home or Self Care () 09/13/2024 12:35 PM EST - 09/13/2024 11:59 PM EST Hospital Encounter [facility] Mammography Department [address] [place] [address] Screening mammogram for breast cancer Discharge Disposition: Home or Self Care () from Last 3 Months Immunizations Name Administration Dates Next Due Tetanus Toxoid, Reduced Diph theria Toxoid, and Acellular Pertussis Vaccine, Adsorbed 05/18/2009 Family History Medical History Relation Name Comments Other Brother Family History of scleroderma Other Father Family History of type 2 diabetes mellitus Other Father's Sister 1 Family His tory of malignant neoplasm of breast Breast cancer Father's Sister 2 Other Mother Family History of type 2 diabetes mellitus Relation Name Status Comments Brother Father Father's Sister 1 Father's Sister 2 Alive Mother Social History Tobacco Use Types Packs/Day Years [...] 09/13/2024 12:37 PM EST Plan of Treatment Health Maintenance Due Date Last Done Comments Cervical Cancer Screening 1966 Colonoscopy 1966 FOBT / Fit Test 1966 HIV Screening 1966 HPV and Pap Smear 1966 Hepatitis C Screening 1966 Pap Smear 1966 Sigmoidoscopy 1966 Hepatitis B Vaccines (3 of 3 - 19+ 3-dose series) 06/28/2008 01/31/2008, 12/28/2007 Zoster Vaccines (1 of 2) 2016 COVID-19 Vaccine (3 - season) 2024 05/04/2021, 04/12/2021 Influenza Vaccine (#1) 2024 , 08/08/2022, 08/06/2021, Additional history exists Alcohol/Substance Use Screening 09/25/2024 Depression Screening and Follow-Up 09/25/2024 Social Drivers of Health Annual Screening 09/25/2024 Mammogram 09/13/2026 09/13/2024, 12/0 04/2023, 08/05/2022, Additional history exists Cologuard 09/20/2027 09/20/2024, 12/2 03/2024, 04/02/2021, Additional history exists Colon Cancer Screening 09/20/2027 DTaP,Tdap,and Td Vaccines (3 - Td or Tdap) 03/04/2029 03/04/2019, 05/18/2009, 11/24/2003 RSV Vaccine (60+ years old and patients) (1 - 1-dose 75+ series) 2041 Pneumococcal Vaccine: Pediatric (0-5 Years) and At-Risk Patients (6-64 Years) Aged Out No longer eligible based on patient's age to complete this topic Procedures * Due to [place] [employer] law, this organization might not be sharing negative HIV tests. Procedure Name Priority Date/Time Associated Diagnosis Comments US LEFT BREAST LIMITED ADDITIONAL VIEWS Routine 10/24/2024 11:43 AM EST Lump in armpit, left SAMAN BILATERAL SCREENING DIGITAL MAMMOGRAM WITH RONNIE Routine 09/13/2024 12:55 PM EST Screening mammogram for breast cancer from Last 3 Months Results * Due to [place] [employer] law, this organization might not be sharing negative HIV tests. * US Left Breast Limited Additional Views (10/24/2024 11:43 AM EST) Anatomical Region Laterality Modality Breast Left Ultrasound Narrative 10/24/2024 12:58 PM EST Inga Gregory Exam Date: 10/24/[address] [address] INDICATIONS Enlarged axillary lymph nodes on screening [...] obtain the completed interpretation. Rita Agosto MD us Trini WINSTON BI PROCEDURES Final Result * (ABNORMAL) SAMAN Bilateral Screening Digital Mammogram With Ronnie (09/13/2024 12:55 PM EST) Anatomical Region Laterality Modality Breast Bilateral Mammography Narrative 09/27/2024 7:59 AM EST Exam Date: 09/13/[address] [address] EXAMINATION SAMAN Bilateral Screening Digital Mammogram With [...] breast ultrasound (ABUS) depending on risk factors. https://acsearch.acr.org/docs/4069103/Narrative/ Breast MRI is available at many [facility] MRI locations. To schedule, enter an MRI order into [facility] Epic (MRI BREAST BILAT SCREENING W WO CONTRAST), call [phone] or [phone], or fax [phone]. ABUS is available at two [facility] sites. To schedule, enter an ABUS order into [facility] (ABUS), contact [place] Central Scheduling (call [phone] or fax order [phone]), or contact [facility] Central Scheduling (call [phone] or fax order [phone]). If this radiology report contains a blank impression section, it is an incomplete radiology report. ??Please contact the interpreting radiologist or applicable radiology division as soon as possible to obtain the completed interpretation. Deepika Barillas MD Trini Mehta IMG BI PROCEDURES Final Result from Last 3 Months Insurance [employer] OUT OF STATE PPO Care Teams Placement Director Relationship Specialty Start Date End Date Trini Mehta [address] [address] PCP - General 08/08/23
== END 2024-11-05 11:06 | disposition home or self-care (01) ==
PROVIDERS: PCP Nurse Practitioner Family; Visit Provider Internal Medicine Rheumatology
DX: M06.9 Rheumatoid arthritis, unspecified (principal); Z79.899 Other long term (current) drug therapy
CPT/HCPCS: 99214

== ENCOUNTER → 2024-11-05 10:07 | Outpatient (BNVA) | payer BC, SELFPAY | PROVIDERS: PCP Nurse Practitioner Family; Visit Provider Internal Medicine Rheumatology ==

== ENCOUNTER 2024-12-19 12:45 | Outpatient (AMB) | payer BC, SELFPAY ==
--- NOTE | 2024-12-19 12:46 | MHC.OFFVIS ---
Vital Signs 12/19/24 12:49 Height 5 ft 3 in Weight 114 lb 13.773 oz BMI 20.3 BP 160/80 H Blood Pressure Location Lt brachial Position Sitting Pulse 97 Pulse Source Pulse Oximeter Pulse Oximetry (%) 99 Oxygen Delivery Method Room Air Intake Visit Reasons: 1 Month Intake Note: Patient presents for follow up for rheumatoid arthritis Allergies acetaminophen [From Tylenol] Allergy (Mild, Verified 11/05/24 10:12) urticaria, skin rashes erythromycin base Allergy (Mild, Verified 11/05/24 10:12) Stomach Upset Penicillins Allergy (Mild, Verified 11/05/24 10:12) Hives HPI HPI 1 Month: Details: Patient would like to hold methotrexate until after her daughter's graduation in January. She has minimal morning stiffness. She continues to have swelling in her joints. No recent infections. She spoke with 1 of my rheumatology arthritis patient's about rheumatoid arthritis and my patient's experience with methotrexate. She would like to speak with another patient around her age range. [facility] Medical History Abscess of right breast Bilateral hand pain Surgical History History of carpal tunnel surgery of left wrist H/O dilation and curettage Family History Father Gouty arthritis Mother History of thyroid surgery Diabetes Hypertension Brother Scleroderma Gout Social History Household Members: Family Alcohol intake: current Alcohol intake frequency: holidays/special occasions only Alcohol type: hard liquor Comment: mixed drink Patient Tobacco Use Status: Never used Tobacco Review of Systems Const All systems reviewed & are unremarkable except as noted in HPI and below Physical Exam Vital Signs: Last Vital Signs Pulse 97 12/19/24 12:49 BP 160/80 H 12/19/24 12:49 Pulse Ox 99 12/19/24 12:49 Oxygen Delivery Method Room Air 12/19/24 12:49 BMI result Body Mass Index 20.3 Const Other: General: Comfortable CVS: RRR Respiratory: clear to auscultation bilaterally. Good respiratory effort Skin: No lesions seen MSK: She has synovitis bilateral wrists, synovitis of left 3rd PIP, right 4th and 3rd PIP, bilateral knees, bilateral ankles and MTP. She can not make a full fist with her right hand. Normal range of motion of upper extremities. Normal range of motion of lower Assessment & Plan Assessment & Plan (1) Rheumatoid arthritis: Comment: Seropositive with positive rheumatoid factor. She continues to have synovitis affecting multiple joints. At this time pain and stiffness is controlled. We discussed importance of controlling synovitis to prevent progression of disease and permanent deformities. Patient agreed to prednisone course while she waits for end of January to begin methotrexate. Answered patient's questions to her satisfaction. Code(s): M06.9 - Rheumatoid arthritis, unspecified Category: Medical Qualifiers: Rheumatoid arthritis location: multiple sites Rheumatoid factor presence: with rheumatoid factor Qualified Code(s): M05.79 - Rheumatoid arthritis with rheumatoid factor of multiple sites without organ or systems involvement Plan: Prednisone course prescribed She will obtain labs a week prior to starting methotrexate. After labs are reviewed, I will send prescription for methotrexate 12.5 mg once weekly 1 month supply and folic acid 1 mg 1 year supply. She will then need labs 4 weeks after starting methotrexate: CBC, creatinine, AST, ALT, ESR, CRP. Patient request labs to be done at [facility] per insurance requirement. Rx for labs prior to MTX given to patient. I will try to arrange another phone call with another 1 of my patients with rheumatoid arthritis on methotrexate around her age. Return to clinic in 3 month (2) [facility] [place] [facility] drug therapy: Code(s): Z79.899 - Other [place] [facility] (current) drug therapy Category: Medical Plan: See above Orders: Orders Alanine Aminotransferase 1 Month Z79.60 - rat exterminator (current) use of unspecified immunomodulators and immunosuppressants Aspartate Amino Transferase 1 Month Z79.60 - longterm (current) use of unspecified immunomodulators and immunosuppressants Creatinine 1 Month Z79.60 - longterm (current) use of unspecified immunomodulators and immunosuppressants Complete Blood Count Auto Diff 1 Month Z79.60 - longterm (current) use of unspecified immunomodulators and immunosuppressants Medications: New prednisone Take 4 tablets daily 5 days, 3 tablets daily 5 days, 2 tablets daily 5 days, 1 tablet daily 5 days. Take prednisone with food. 5 mg PO DIRECTED 50 tabs 0RF Coding Level of Care Code Est Pt Level 4 (49551) Complex EM visit Add On G2211 Diagnoses Rheumatoid arthritis involving multiple sites with positive rheumatoid factor M05.79 Rheumatoid arthritis location: multiple sites Rheumatoid factor presence: with rheumatoid factor Other oysterman (current) drug therapy Z79.899
[2024-12-19 12:49] VITALS: BP 160/80; PULSE 97; O2SAT 99; BMI 20.3
== END 2024-12-19 13:24 | disposition home or self-care (01) ==
LOC: HO.RHES 12:46
PROVIDERS: PCP Nurse Practitioner Family; Visit Provider Internal Medicine Rheumatology
DX: M05.79 Rheumatoid arthritis with rheumatoid factor of multiple sites without organ or systems involvement (principal); Z79.899 Other long term (current) drug therapy
CPT/HCPCS: 99214

== ENCOUNTER 2025-03-06 13:56 | Outpatient (AMB) | payer BC, SELFPAY ==
--- NOTE | 2025-03-06 13:58 | A.OFFVIS_ITS ---
Vital Signs 03/06/25 13:59 Height 5 ft 3 in Weight 108 lb BMI 19.1 BP 106/68 Blood Pressure Location Rt brachial Position Sitting Pulse 120 H Pulse Source Pulse Oximeter Pulse Oximetry (%) 98 Oxygen Delivery Method Room Air Intake Visit Reasons: 3 Months Intake Note: Patient presents for follow up for rheumatoid arthritis Allergies acetaminophen [From Tylenol] Allergy (Mild, Verified 03/06/25 13:59) urticaria, skin rashes erythromycin base Allergy (Mild, Verified 03/06/25 13:59) Stomach Upset Penicillins Allergy (Mild, Verified 03/06/25 13:59) Hives HPI HPI 3 Months: Details: Every spring she experiences sinus symptoms with postnasal drip. Recently she had left ear pain, which has subsided. She treats herself with drinking tea. She does not seek medical attention. She is not regularly treated with an antibiotic. She denies fevers or sinus discomfort. Morning stiffness in hands is hours. She is tolerating pain and is functional. [facility] Medical History Abscess of right breast Bilateral hand pain Surgical History History of carpal tunnel surgery of left wrist H/O dilation and curettage Family History Father Gouty arthritis Mother History of thyroid surgery Diabetes Hypertension Brother Scleroderma Gout Social History Household Members: Family Alcohol intake: current Alcohol intake frequency: holidays/special occasions only Alcohol type: hard liquor Comment: mixed drink Patient Tobacco Use Status: Never used Tobacco Physical Exam Vital Signs: Last Vital Signs Pulse 120 H 03/06/25 13:59 BP 106/68 03/06/25 13:59 Pulse Ox 98 03/06/25 13:59 Oxygen Delivery Method Room Air 03/06/25 13:59 BMI result Body Mass Index 19.1 Const Other: General: Comfortable CVS: RRR Respiratory: clear to auscultation bilaterally. Good respiratory effort Skin: No lesions seen MSK: She has synovitis bilateral wrists, synovitis of right 3rd PIP, bilateral knees, bilateral ankles with light synovitis of bilateral MTPs. Normal range of motion of upper extremities. Normal range of motion of lower Assessment & Plan Assessment & Plan (1) Rheumatoid arthritis: Comment: Pain and function has improved with prednisone course. At this time she has developed sinus symptoms with postnasal drip and is concerned for sinus infec tion. We had an extensive discussion in regards to treatment of rheumatoid arthritis to treat current symptoms, prevent progression of disease including permanent joint damage and disability, and risk of infection on methotrexate. Answered patient's questions to her satisfaction. Rheumatology history: Seropositive with positive rheumatoid factor presenting with polyarthritis/diffuse synovitis. Improved with prednisone course. Code(s): M06.9 - Rheumatoid arthritis, unspecified Category: Medical Qualifiers: Rheumatoid arthritis location: multiple sites Rheumatoid factor presence: with rheumatoid factor Qualified Code(s): M05.79 - Rheumatoid arthritis with rheumatoid factor of multiple sites without organ or systems involvement Plan: She will contact PCP for evaluation of her sinus symptoms. She we will then call our office for clinical update on plan for treatment of sinus symptoms. If she is on an antibiotic, she will complete course of antibiotic then obtain labs prior to starting methotrexate. After labs are reviewed, I will send prescription for methotrexate 12.5 mg once weekly 1 month supply and folic acid 1 mg 1 year supply. She will then need labs 4 weeks after starting methotrexate: CBC, creatinine, AST, ALT, ESR, CRP. Patient request labs to be done at [facility] per insurance requirement. Return to clinic 3 months (2) Other termite treater helper (current) drug therapy: Code(s): Z79.899 - Other termite treater helper (current) drug therapy Category: Medical Plan: See above Coding Level of Care Code Est Pt Level 4 (43058) Complex EM visit Add On G2211 Diagnoses Rheumatoid arthritis involving multiple sites with positive rheumatoid factor M05.79 Rheumatoid arthritis location: multiple sites Rheumatoid factor presence: with rheumatoid factor Other termite treater helper (current) drug therapy Z79.899 Time Spent (min) 25
[2025-03-06 13:59] VITALS: BP 106/68; PULSE 120; O2SAT 98; BMI 19.1
--- OUTSIDE RECORDS SUMMARY | 2025-03-06 16:26 | XMS_ITS | Referral Summary ---
Author Organization [facility] Address [address] [place] [address] Care Team Providers Care Fruit Pitter Name Role Phone Trini Mehta Primary Care Provider [phone] Active Problems Problem Noted Date Diagnosed Date Eczema 05/01/2014 Allergic rhinitis 10/03/2012 Immunizations Immunization Administration Dates Next Due Tetanus Toxoid, Reduced [...] Not on file Procedures * Due to [place] [employer] law, this organization might not be sharing negative HIV tests. Procedure Name Priority Date/Time Associated Diagnosis Comments SAMAN BILATERAL SCREENING DIGITAL MAMMOGRAM WITH RONNIE Routine 09/13/2024 12:55 PM EST Screening mammogram for breast cancer from Last 3 Months or Most Recently Relevant to Health Maintenance Results * Due to [place] state law, this organization might not be sharing negative HIV tests. * (ABNORMAL) SAMAN Bilateral Screening Digital Mammogram With Ronnie (09/13/2024 12:55 PM EST) Anatomical Region Laterality Modality Breast Bilateral Mammography Narrative 09/27/2024 7:59 AM EST Exam Date: 09/13/[address] [address] EXAMINATION SAMAN Bilateral Screening Digital Mammogram With [...] breast ultrasound (ABUS) depending on risk factors. [email or web address] Breast MRI is available at many [facility] MRI locations. To schedule, enter an MRI order into [facility] Epic (MRI BREAST BILAT SCREENING W WO CONTRAST), call [phone] or [phone], or fax [phone]. ABUS is available at two [facility] sites. To schedule, enter an ABUS order into [facility] (ABUS), contact [facility] Scheduling (call [phone] or fax order [phone]), or contact [facility] Central Scheduling (call [phone] or fax order [phone]). If this radiology report contains a blank impression section, it is an incomplete radiology report. ??Please contact the interpreting radiologist or applicable radiology division as soon as possible to obtain the completed interpretation. Deepika Barillas MD Trini Mehta IMG BI PROCEDURES Final Result from Last 3 Months or Most Recently Relevant to Health Maintenance Insurance [employer] OUT OF STATE PPO Care Teams Fruit Pitter Relationship Specialty Start Date End Date Trini Mehta [address] [address] PCP - General 08/08/23
== END 2025-03-06 14:33 | disposition home or self-care (01) ==
LOC: HO.RHES 13:57
PROVIDERS: PCP Nurse Practitioner Family; Visit Provider Internal Medicine Rheumatology
DX: M05.79 Rheumatoid arthritis with rheumatoid factor of multiple sites without organ or systems involvement (principal); Z79.899 Other long term (current) drug therapy
CPT/HCPCS: 99214

== ENCOUNTER → 2025-03-06 13:56 | Outpatient (BNVA) | payer BC, SELFPAY | PROVIDERS: PCP Nurse Practitioner Family; Visit Provider Internal Medicine Rheumatology ==